=== PATIENT | male | born 1950 | race Caucasian/White ===

== ENCOUNTER 2020-07-23 11:24 | Observation (INO) | payer MEDICARE, OTHER ==
[2020-07-16 11:09] LABS: BASOPHILS # (AUTO) 0.1 X10'3 (0-0.2); BASOPHILS % (AUTO) 1.2 % (0-1); EOSINOPHILS # (AUTO) 0.2 X10'3 (0-0.9); EOSINOPHILS % (AUTO) 2.6 % (0-6); LYMPHOCYTES # (AUTO) 1.3 X10'3 (1.1-4.8); LYMPHOCYTES % (AUTO) 19.5 % (21-51); MEAN CORPUSCULAR HEMOGLOBIN 28.4 PG (27.0-31.0); MEAN CORPUSCULAR HGB CONC 34.2 g/dL (33.0-36.5); MEAN CORPUSCULAR VOLUME 83.2 FL (78-98); MEAN PLATELET VOLUME 7.6 FL (7.4-10.4); MONOCYTES # (AUTO) 0.5 X10'3 (0-0.9); MONOCYTES % (AUTO) 7.1 % (2-12); NEUTROPHILS # (AUTO) 4.7 X10'3 (1.8-7.7); NEUTROPHILS % (AUTO) 69.6 % (42-75); PRE OP HEMOGLOBIN 14.3 g/dL (14.0-17.9); PRE OP PLATELET COUNT 227 X10'3 (140-440); RED BLOOD COUNT 5.05 X10'6 (4.70-6.10); RED CELL DISTRIBUTION WIDTH 15.5 % (11.5-14.5)
[2020-07-16 11:18] LABS: CLARITY,URINE CLEAR (Clear); COLOR,URINE YELLOW (Yellow); GLUCOSE, URINE NEGATIVE (Neg); KETONES,URINE NEGATIVE (Neg); LEUKOCYTE ESTERASE ,URINE TRACE (Neg); NITRITES, URINE NEGATIVE (Neg); OCCULT BLOOD,URINE TRACE-INTACT (Neg); PH,URINE 5.5 (4.8-8.0); PROTEIN,URINE NEGATIVE (Neg); UROBILINOGEN,URINE 0.2 E.U/dL (0.2-1.0)
[2020-07-16 11:20] LABS: UA COLLECTION TYPE CLN CATCH MIDSTREAM
[2020-07-16 11:25] LABS: BACTERIA,URINE FEW /HPF (Neg); MUCUS STRANDS NONE SEEN /LPF (Neg); RBC,URINE 0-2 /HPF (0-2); SQUAMOUS EPITHELIAL CELL,UR FEW /LPF (FEW); WBC CLUMPS,URINE FEW /HPF (NEGATIVE)
[2020-07-16 11:33] LABS: ALBUMIN 3.9 G/DL (3.4-5.0); ALBUMIN/GLOBULIN RATIO 1.3 (1.1-1.5); ALKALINE PHOSPHATASE 85 IU/L (46-116); BLOOD UREA NITROGEN 21 MG/DL (7-18); BUN/CREATININE RATIO 15.9 (5.4-32.0); CALCIUM 9.3 MG/DL (8.5-10.1); CHLORIDE 108 MMOL/L (99-107); CREATININE 1.32 MG/DL (0.60-1.10); PRE OP ALT 35 U/L (30-65); PRE OP ANION GAP 9 (8-16); PRE OP AST 19 U/L (10-37); PRE OP BILIRUB, TOTAL 0.6 MG/DL (0.0-1.0); PRE OP GLUCOSE 111 MG/DL (70-104); PRE OP POTASSIUM 3.8 MMOL/L (3.4-5.1); PRE OP SODIUM 144 MMOL/L (135-145); TOTAL CARBON DIOXIDE 27.5 MMOL/L (24-32); TOTAL PROTEIN 6.9 G/DL (6.4-8.2); eGFR 53 ML/MIN
[~2020-07-23] VITALS: Ht 185.4 cm; Wt 107.0 kg
[2020-07-23] VITALS (17 sets, daily range): BP systolic 124–157; BP diastolic 62–82
[~2020-07-23 11:24] MED LIST: AMLO5TAB PO; ATOR10TA70 PO; FINA5TAB11 PO; GABA300C PO; HYDR25TA5 PO; PARO40TA4 PO; TERA2CAP4 PO; TRAM50TA2 PO; ceFAZolin 2gm in dextrose, iso 50 ML IV ONE; famotidine 20mg tablet PO ONE; vancomycin 1,500 MG in NS 300ml IV soln IV ONE
[2020-07-23] MEDS: ringers solution, lacted 1,000 ML IV SCH (12:20)
[2020-07-23] MEDS ORDERED: hydrALAZINE 20mg/ml inj. IV PRN (18:30)
[2020-07-23] MEDS ORDERED: ringers solution, lacted 1,000 ML IV SCH (18:30)
[2020-07-23] MEDS ORDERED: ROPIVAcaine 0.2% (10 MG/5 ML) BOLUS INJECTION POPLITEAL PRN (18:30)
[2020-07-23] MEDS ORDERED: labetalol 20mg/4ml (5mg/ml) syringe IV PRN (18:30)
[2020-07-23] MEDS ORDERED: morphine 2 MG/ML inj. syringe IV PRN (18:30)
[2020-07-23] MEDS ORDERED: fentaNYL/PF 50MCG/1 ML 2ML syringe IV PRN ×2 (18:30)
[2020-07-23] MEDS ORDERED: ondansetron/PF 4mg/2ml inj IV PRN ×2 (18:30→22:10)
[2020-07-23] MEDS ORDERED: morphine 4 MG/ML inj SYRINge IV PRN (18:30)
[2020-07-23] MEDS ORDERED: ROPIVAcaine 0.2%/PF PUMP/bolus 545 ML POPLITEAL SCH (19:00)
[2020-07-23] MEDS ORDERED: fentaNYL/PF 50MCG/1 ML 2ML syringe ONE ×2 (19:03→20:07)
[2020-07-23] MEDS ORDERED: MIDAZolam 1 MG/ML 5ML VIAL ONE (19:03)
[2020-07-23] MEDS ORDERED: sevoflurane 250ml liquid IH ONE (19:35)
[2020-07-23] MEDS ORDERED: dexamethasone sod phosphate 4mg/ml inj. ONE (20:22)
[2020-07-23] MEDS ORDERED: propofol inj 20 ML IV ONE (20:22)
[2020-07-23] MEDS ORDERED: ondansetron/PF 4mg/2ml inj ONE (20:22)
[2020-07-23] MEDS ORDERED: LIDOcaine 2% (20mg/ml) 5ml vial ONE (20:22)
[2020-07-23] MEDS ORDERED: bacitracin 15gm ointment TP ONE (21:55)
[2020-07-23] MEDS ORDERED: diphenhydrAMINE 25mg capsule PO PRN ×2 (22:10)
[2020-07-23] MEDS ORDERED: bisacodyl 10mg suppository rectal RC PRN (22:10)
[2020-07-23] MEDS ORDERED: HYDROcodone/acetaminophen 10/325mg tab PO PRN ×2 (22:10)
[2020-07-23] MEDS ORDERED: magnesium hydroxide 30ml (MOM) UD suspension PO PRN (22:10)
[2020-07-23] MEDS ORDERED: acetaminophen 325mg tablet PO PRN (22:10)
--- NOTE | 2020-07-23 22:20 | NUR ---
PT INTO PACU AND RECOVERED BY ONancyRNancy RN UNTIL THIS RN ARRIVED AT 2245, PT ON MONITOR S/P ORIF RIGHT ANKLE, GENERAL ANESTH WITH POPLITEAL BLOCK, PT HAS SPLINT DRESSING TO LOWER RIGHT LEG/ FOOT GOOD CAP REFILL TO TOES RIGHT FOOT. PT DENIES ANY PAIN OR NAUSEA AT THIS TIME WILL CONT TO ASSESS.
--- NOTE | 2020-07-23 22:30 | NUR ---
Pt. not on floor at this time. Addendum: 07/24/20 at 0445 by Sharita Finn RN Amended: Links added.
--- NOTE | 2020-07-23 23:50 | NUR ---
Report called to receiving nurse. Transferred via ORTHO BED TO ROOM 4023A Belongings . Special Issues communicated to receiving nurse.
--- NOTE | 2020-07-24 00:09 | NUR ---
Pt. able to move the extremity wiggle toes but denies sensation to toes on touch. No further bleeding noted Extremity elevated. Addendum: 07/24/20 at 0450 by Sharita Finn RN Amended: Links added.
[2020-07-24 00:54] VITALS: BP 138/75
[2020-07-24] MEDS: ceFAZolin/D5W- 1GM premix 50 ML IV SCH ×2 (01:29→10:12)
[2020-07-24 01:54] VITALS: BP 137/69
[2020-07-24] MEDS: potassium cl 20mEq in 1/2 NS 1,000 ML IV SCH ×2 (02:10→10:16)
[2020-07-24] MEDS ORDERED: mag hydrox/Alum hydrox/simeth 30ml oral suspension PO PRN (02:20)
[2020-07-24] MEDS ORDERED: acetaminophen 325mg tablet PO PRN ×2 (02:20)
[2020-07-24] MEDS ORDERED: HYDROcodone/acetaminophen 10/325mg tab PO PRN (02:20)
[2020-07-24] MEDS ORDERED: Terazosin 1mg capsule PO SCH (02:20)
[2020-07-24] MEDS ORDERED: magnesium hydroxide 30ml (MOM) UD suspension PO PRN (02:20)
[2020-07-24] MEDS ORDERED: ondansetron/PF 4mg/2ml inj IV PRN (02:20)
[2020-07-24] MEDS ORDERED: morphine 2 MG/ML inj. syringe IV PRN ×2 (02:20)
[2020-07-24] MEDS ORDERED: gabapentin 300mg capsule PO SCH (02:20)
[2020-07-24] MEDS ORDERED: HYDROmorphone inj. 0.5 MG/0.5 ML DISP.SYRIN IV PRN (02:20)
[2020-07-24] MEDS ORDERED: finasteride 5mg tablet PO SCH (02:20)
[2020-07-24] MEDS ORDERED: HYDROcodone/acetaminophen 5mg/325mg tablet PO PRN (02:20)
[2020-07-24] MEDS ORDERED: traMADol 50MG tablet PO PRN (02:55)
[2020-07-24 04:00] VITALS: BP 141/74
--- NOTE | 2020-07-24 04:09 | NUR ---
Pt. able to move the extremity, wiggle toes, denies sensation to toes. On assessment toes and proximal aspect warm to touch. Addendum: 07/24/20 at 0510 by Sharita Finn RN Amended: Links added.
[2020-07-24 06:00] VITALS: BP 129/79
--- NOTE | 2020-07-24 06:00 | NUR ---
Problems reprioritized. Patient report given, questions answered & plan of care reviewed with Christine JI. Addendum: 07/24/20 at 0707 by Sharita Finn RN Amended: Links added.
[2020-07-24 06:10] LABS: BASOPHILS % (AUTO) 0.2 % (0-1); EOSINOPHILS % (AUTO) 0 % (0-6); HEMATOCRIT 41.7 % (42.0-52.0); HEMOGLOBIN 14.3 g/dl (14.0-17.9); LYMPHOCYTES # (AUTO) 0.5 X10'3 (1.1-4.8); MEAN CORPUSCULAR HEMOGLOBIN 28.5 PG (27.0-31.0); MEAN CORPUSCULAR HGB CONC 34.3 g/dL (33.0-36.5); MEAN PLATELET VOLUME 7.9 FL (7.4-10.4); MONOCYTES # (AUTO) 0.1 X10'3 (0-0.9); MONOCYTES % (AUTO) 1.5 % (2-12); NEUTROPHILS # (AUTO) 7.5 X10'3 (1.8-7.7); NEUTROPHILS % (AUTO) 92.3 % (42-75); PLATELET COUNT 226 X10'3 (140-440); RED BLOOD COUNT 5.02 X10'6 (4.70-6.10); RED CELL DISTRIBUTION WIDTH 15.5 % (11.5-14.5); WHITE BLOOD COUNT 8.2 X10'3 (4.5-11.0)
[2020-07-24 06:35] LABS: ALANINE AMINOTRANSFERASE 34 U/L (12-78); ALBUMIN 3.6 G/DL (3.4-5.0); ALBUMIN/GLOBULIN RATIO 1.2 (1.1-1.5); ALKALINE PHOSPHATASE 75 IU/L (46-116); ANION GAP 11 (8-16); ASPARTATE AMINO TRANSFERASE 20 U/L (10-37); BILIRUBIN,TOTAL 0.7 MG/DL (0.1-1.0); BLOOD UREA NITROGEN 17 MG/DL (7-18); BUN/CREATININE RATIO 14.9 (5.4-32.0); CALCIUM 8.8 MG/DL (8.5-10.1); CHLORIDE 108 MMOL/L (99-107); CREATININE 1.14 MG/DL (0.60-1.10); GLUCOSE 146 MG/DL (70-104); POTASSIUM 3.6 MMOL/L (3.5-5.1); SODIUM 142 MMOL/L (135-145); TOTAL CARBON DIOXIDE 22.7 MMOL/L (24-32); TOTAL PROTEIN 6.6 G/DL (6.4-8.2); eGFR 63 ML/MIN
[2020-07-24 08:00] VITALS: BP_SYST 104
[2020-07-24] MEDS ORDERED: PARoxetine 20mg tablet PO SCH (08:00)
[2020-07-24] MEDS ORDERED: HYDROchlorothiazide 25mg tablet PO SCH (08:00)
[2020-07-24] MEDS ORDERED: amLODIPine 5mg tablet PO SCH (08:00)
[2020-07-24] MEDS ORDERED: heparin, porcine 5000 units/ml vial SQ SCH (08:00)
[2020-07-24] MEDS ORDERED: atorvastatin 10mg tablet PO SCH (08:00)
[2020-07-24] MEDS ORDERED: aspirin 325mg tablet PO SCH (08:30)
[2020-07-24] MEDS: ringers solution, lacted 1,000 ML IV SCH (10:10)
[2020-07-24] MEDS ORDERED: APIX2.5T PO (11:20)
[2020-07-24] MEDS ORDERED: sennosides 8.6mg tablet PO SCH (21:00)
--- NOTE | 2020-07-28 11:32 | NUR ---
CASE MANAGEMENT DISCHARGE FOLLOW UP: Spoke with pt via telephone. Reports that he is doing well, pain level is manageable (pt taking 2 Norcos at night, none during day, keeping foot elevated when resting, ice packs applied intermittently throughout the day), pt states able to wiggle toes/not sure about feeling as foot is wrapped in splint; denies CP, fever/chills, s/sx infection, SOB. Verbalizes understanding of new and current medications, however pt states that when he went to [facility] Eliquis for 20 days cost was over $100, so he has been taking aspirin instead. States surgeon not aware of change, advised that he notify surgeon that he is not taking the Eliquis due to cost and is instead taking Aspirin to make sure that change in medication/dose is sufficient for DVT prophylaxis, he states that he will do so. Verbalizes compliance with MD discharge instructions, states mobility is good despite maintaining non-weightbearing status of R leg. Verbalizes understanding of the importance in making/keeping follow-up appointments, has f/u scheduled with surgeon. States no further questions/concerns at this time. Pt would like to express that he thinks that he was well-cared for during hospitalization and wants to say a big thank you to everybody, he states he was pleased with everybody and that he thinks they are a bunch of happy people.
== END 2020-07-24 13:55 | disposition home or self-care (01) ==
LOC: PAS 11:24 → INTOOBSV 22:07 → ORTHO 4S 22:07
PROVIDERS: ADMIT Podiatrist Foot & Ankle Surgery; ATTEND Internal Medicine
DX: S82.831A Other fracture of upper and lower end of right fibula, initial encounter for closed fracture (principal); M13.871 Other specified arthritis, right ankle and foot; M21.071 Valgus deformity, not elsewhere classified, right ankle; N17.9 Acute kidney failure, unspecified; E87.2 Acidosis; E78.5 Hyperlipidemia, unspecified; I10 Essential (primary) hypertension; N40.0 Benign prostatic hyperplasia without lower urinary tract symptoms; G47.30 Sleep apnea, unspecified; F32.9 Major depressive disorder, single episode, unspecified; Z79.899 Other long term (current) drug therapy; X58.XXXA Exposure to other specified factors, initial encounter; Y93.89 Activity, other specified; Y92.89 Other specified places as the place of occurrence of the external cause; Y99.8 Other external cause status
CPT/HCPCS: 27792; 36415; 73600; 80053; 81001; 82948; 83605; 85025; 87040; 87081; 87088; 96361; 96365; 96366; 96367; 96372; 97116; 97161; 97530; A6223; C1713; G0378; J0690; J1100; J1644; J2001; J2250; J2405; J2704; J2795; J3010; J3370; J7040; J7120; 76000; A4618; A6449; A7000; J3480

== ENCOUNTER 2021-09-05 10:16 | Emergency (ER) | payer MEDICARE, OTHER ==
[~2021-09-05] VITALS: Ht 185.4 cm; Wt 106.8 kg
[~2021-09-05 10:16] MED LIST changes: +APIX2.5T PO; -HYDR25TA5 PO; -TRAM50TA2 PO; -ceFAZolin 2gm in dextrose, iso 50 ML IV ONE; -famotidine 20mg tablet PO ONE; -vancomycin 1,500 MG in NS 300ml IV soln IV ONE
[2021-09-05 10:21] VITALS: BP 132/65
[2021-09-05] MEDS ORDERED: BEBTELOVIMAB 175 MG/2 ML VIAL IV ONE (11:30)
== END 2021-09-05 13:52 | disposition home or self-care (01) ==
LOC: ER 10:17
DX: U07.1 COVID-19 (principal); Z88.0 Allergy status to penicillin; Z79.01 Long term (current) use of anticoagulants; Z79.899 Other long term (current) drug therapy
CPT/HCPCS: 87635; 99283; C9803; M0222; Q0222

== ENCOUNTER 2021-11-04 06:56 | Day surgery (SDC) | payer MEDICARE, OTHER ==
[2021-10-24 13:59] LABS: BASOPHILS % (AUTO) 0.7 % (0-1); EOSINOPHILS # (AUTO) 0.3 X10'3 (0-0.9); EOSINOPHILS % (AUTO) 3.5 % (0-6); LYMPHOCYTES # (AUTO) 1.2 X10'3 (1.1-4.8); LYMPHOCYTES % (AUTO) 15.7 % (21-51); MEAN CORPUSCULAR VOLUME 82.1 FL (78-98); MEAN PLATELET VOLUME 7.8 FL (7.4-10.4); MONOCYTES # (AUTO) 0.4 X10'3 (0-0.9); MONOCYTES % (AUTO) 5.6 % (2-12); NEUTROPHILS # (AUTO) 5.5 X10'3 (1.8-7.7); NEUTROPHILS % (AUTO) 74.5 % (42-75); PRE OP HEMATOCRIT 40.2 % (42.0-52.0); PRE OP HEMOGLOBIN 13.7 g/dL (14.0-17.9); PRE OP PLATELET COUNT 204 X10'3 (140-440); RED BLOOD COUNT 4.89 X10'6 (4.70-6.10); RED CELL DISTRIBUTION WIDTH 15.6 % (11.5-14.5)
[2021-10-24 14:09] LABS: CLARITY,URINE SLIGHTLY CLOUDY (Clear); COLOR,URINE YELLOW (Yellow); GLUCOSE, URINE NEGATIVE (Neg); KETONES,URINE NEGATIVE (Neg); LEUKOCYTE ESTERASE ,URINE MODERATE (Neg); NITRITES, URINE POSITIVE (Neg); OCCULT BLOOD,URINE SMALL (Neg); PROTEIN,URINE NEGATIVE (Neg); UROBILINOGEN,URINE 0.2 E.U/dL (0.2-1.0)
[2021-10-24 14:13] LABS: ALBUMIN 3.8 G/DL (3.4-5.0); ALBUMIN/GLOBULIN RATIO 1.3 (1.1-1.5); ALKALINE PHOSPHATASE 86 IU/L (46-116); BLOOD UREA NITROGEN 18 MG/DL (7-18); BUN/CREATININE RATIO 19.1 (5.4-32.0); CALCIUM 8.9 MG/DL (8.5-10.1); CHLORIDE 107 MMOL/L (99-107); CREATININE 0.94 MG/DL (0.60-1.10); PRE OP ALT 41 U/L (30-65); PRE OP ANION GAP 7 (8-16); PRE OP AST 22 U/L (10-37); PRE OP BILIRUB, TOTAL 0.7 MG/DL (0.0-1.0); PRE OP GLUCOSE 120 MG/DL (70-104); PRE OP SODIUM 141 MMOL/L (135-145); TOTAL CARBON DIOXIDE 27.1 MMOL/L (24-32); TOTAL PROTEIN 6.8 G/DL (6.4-8.2); eGFR 79 ML/MIN
[2021-10-24 14:16] LABS: UA COLLECTION TYPE VOIDED
[2021-10-24 14:19] LABS: PRE OP POTASSIUM 3.2 MMOL/L (3.4-5.1)
[2021-10-24 14:21] LABS: BACTERIA,URINE 3+ /HPF (Neg); SQUAMOUS EPITHELIAL CELL,UR FEW /LPF (FEW)
[~2021-11-04] VITALS: Ht 185.4 cm; Wt 106.1 kg
[2021-11-04] VITALS (8 sets, daily range): BP systolic 127–149; BP diastolic 59–74
[~2021-11-04 06:56] MED LIST changes: +AMLO10TA13 PO; -AMLO5TAB PO; -APIX2.5T PO; -ATOR10TA70 PO; +ATOR40TA72 PO; +CELE-28 PO; +HYDR25TA5 PO; +PARO-62 PO; -PARO40TA4 PO; +ceFAZolin inj. 2,000 MG in dextrose 5%-water 100 ML IV ONE; +famotidine 20mg tablet PO ONE; +ringers solution, lacted 1,000 ML IV SCH
[2021-11-04 08:13] LABS: ISTAT HGB 12.6 g/dl (14.0-18.0); ISTAT IONIZED CALCIUM 1.3 mmol/L (1.03-1.32); ISTAT K 3.4 mmol/L (3.5-5.1)
[2021-11-04] MEDS ORDERED: bacitracin 15gm ointment TP ONE ×2 (10:22→11:58)
[2021-11-04] MEDS ORDERED: BUPIVAcaine/PF 2.5 mg/ml (0.25%) 30ml vial ONE (10:23)
[2021-11-04] MEDS ORDERED: ondansetron/PF 4mg/2ml inj ONE (11:01)
[2021-11-04] MEDS ORDERED: propofol inj 20 ML IV ONE (11:01)
[2021-11-04] MEDS ORDERED: LIDOcaine 2% (20mg/ml) 5ml vial ONE (11:01)
[2021-11-04] MEDS ORDERED: fentaNYL/PF 50MCG/1 ML 2ML syringe ONE ×2 (11:01→14:22)
[2021-11-04] MEDS ORDERED: dexamethasone sod phosphate 4mg/ml inj. ONE (11:02)
[2021-11-04] MEDS ORDERED: sevoflurane 250ml liquid IH ONE (11:10)
[2021-11-04] MEDS ORDERED: ondansetron/PF 4mg/2ml inj IV PRN (12:00)
[2021-11-04] MEDS ORDERED: morphine 4 MG/ML inj SYRINge IV PRN (12:00)
[2021-11-04] MEDS ORDERED: fentaNYL/PF 50MCG/1 ML 2ML syringe IV PRN ×2 (12:00)
[2021-11-04] MEDS ORDERED: hydrALAZINE 20mg/ml inj. IV PRN (12:00)
[2021-11-04] MEDS ORDERED: ringers solution, lacted 1,000 ML IV SCH (12:00)
[2021-11-04] MEDS ORDERED: morphine 2 MG/ML inj. syringe IV PRN (12:00)
[2021-11-04] MEDS ORDERED: labetalol 20mg/4ml (5mg/ml) syringe IV PRN (12:00)
--- NOTE | 2021-11-04 16:28 | NUR ---
RECEIVED PT FROM THE OPERATING ROOM IN STABLE CONDITION, SLEEPY, AROUSABLE TO PHYSICAL STIMULATION. POPLITEAL PULSES PRESENT BILATERALLY, RIGHT FOOT/TOES ARE WARM TO TOUCH AND PINK. VITAL SIGNS STABLE. IV PATENT. PT STRAIGHT CATHED FOR 400CC OF CLEAR YELLOW URINE BY RAMEZ JI
--- NOTE | 2021-11-04 17:23 | NUR ---
AT BEDSIDE, DISCHARGE INSTRUCTIONS GIVEN TO PATIENT AND HIS , BOTH VERBALIZED UNDERSTANDING OF INSTRUCTIONS. PT INSTRUCTED TO WEAR HIS CPAP MACHININE FOR 24 HOURS EVEN WHEN HES AWAKE. BILATER EYES ARE RED AND SLIGHT SCLERA EDEMA NOTED.
--- NOTE | 2021-11-04 17:25 | NUR ---
ASSISTED PATIENT WITH GETTING DRESSED, BILATERAL POPLITEAL PULSES REMAIN PRESENT AND PALPABLE. TOES REMAIN PINK, WARM TO TOUCH.. IV D/SEAN WITH CATHETER INTACT.
== END 2021-11-04 17:38 | disposition home or self-care (01) ==
LOC: PAS 06:56
PROVIDERS: ATTEND Podiatrist Foot & Ankle Surgery
DX: S82.851A Displaced trimalleolar fracture of right lower leg, initial encounter for closed fracture (principal); M19.071 Primary osteoarthritis, right ankle and foot; M25.471 Effusion, right ankle; Z79.899 Other long term (current) drug therapy; X58.XXXA Exposure to other specified factors, initial encounter; Y93.89 Activity, other specified; Y92.89 Other specified places as the place of occurrence of the external cause; Y99.8 Other external cause status; G89.18 Other acute postprocedural pain; Z98.890 Other specified postprocedural states; G47.30 Sleep apnea, unspecified; Z87.442 Personal history of urinary calculi; F41.9 Anxiety disorder, unspecified; Z88.0 Allergy status to penicillin; Z88.8 Allergy status to other drugs, medicaments and biological substances
CPT/HCPCS: 27685; 28300; 28715; 36415; 64445; 64447; 73620; 76942; 80047; 80053; 81001; 82948; 85025; 87077; 87088; 87186; A6223; C1713; C1758; C1762; J0690; J1100; J2405; J2704; J3010; J3490; J7030; J7060; J7120; Z7506; Z7508; Z7512; 76000; A4618; A6253; A6449; A6455; A7000

== ENCOUNTER 2021-11-05 05:35 | Emergency (ER) | payer MEDICARE, OTHER ==
[~2021-11-05] VITALS: Ht 185.4 cm; Wt 106.8 kg
[~2021-11-05 05:35] MED LIST changes: -ceFAZolin inj. 2,000 MG in dextrose 5%-water 100 ML IV ONE; -famotidine 20mg tablet PO ONE; -ringers solution, lacted 1,000 ML IV SCH
--- NOTE | 2021-11-05 08:00 | NUR ---
Paged orthopedic physical therapist for splint to be replaced.
--- NOTE | 2021-11-05 08:34 | NUR ---
Splint removed Right lower extremity by tech as requested by . Wound cleansed with sterile water and 4x4's. Pt. tolerated well without any complaints. Awaiting [facility] to resplint.
--- NOTE | 2021-11-05 08:53 | NUR ---
Total of four attempts made to contact [employer]; still awaiting return call.
[2021-11-05 10:06] VITALS: BP 126/69
== END 2021-11-05 10:09 | disposition home or self-care (01) ==
LOC: ER 05:36
DX: L76.22 Postprocedural hemorrhage of skin and subcutaneous tissue following other procedure (principal); M79.604 Pain in right leg; Z88.0 Allergy status to penicillin; Z79.899 Other long term (current) drug therapy
CPT/HCPCS: 99285; A6446; A6449